=== PATIENT | female | born 1965 | race Asian ===

== ENCOUNTER 2016-12-20 14:43 | Emergency (ER) | payer SELFPAY ==
[~2016-12-20] VITALS: Ht 152.4 cm; Wt 51.0 kg
[2016-12-20 21:45] VITALS: BP 125/88
== END 2016-12-20 21:45 | disposition home or self-care (01) ==
LOC: ER 15:19
DX: H10.9 Unspecified conjunctivitis (principal); K05.10 Chronic gingivitis, plaque induced; J45.909 Unspecified asthma, uncomplicated; I10 Essential (primary) hypertension; Z88.0 Allergy status to penicillin
CPT/HCPCS: 99283